=== PATIENT | male | born 1945 ===

== ENCOUNTER 2023-06-18 15:04 | Emergency (ER) | payer OTHER, MEDICAID ==
[~2023-06-18] VITALS: Ht 160 cm; Wt 70.3 kg
[2023-06-18 16:27] LABS: BASOPHILS # (AUTO) 0.4 K/UL (0.0-0.2); BASOPHILS % (AUTO) 3.5 % (0.0-2.0); EOSINOPHILS # (AUTO) 0.3 K/uL (0.0-0.7); HEMATOCRIT 38.9 % (36.7-47.1); HEMOGLOBIN 12.7 g/dL (12.5-16.3); LYMPHOCYTES # (AUTO) 1.7 K/uL (0.8-4.8); LYMPHOCYTES % (AUTO) 13.5 % (20.5-51.5); MEAN CORPUSCULAR HEMOGLOBIN 32.2 uug (23.8-33.4); MEAN CORPUSCULAR HGB CONC 33 g/dL (32.5-36.3); MEAN CORPUSCULAR VOLUME 98.7 fL (73.0-96.2); MONOCYTES # (AUTO) 0.9 K/uL (0.1-1.30); MONOCYTES % (AUTO) 6.8 % (0.0-11.0); NEUTROPHILS # (AUTO) 9.3 K/uL (1.8-8.9); NEUTROPHILS % (AUTO) 74.2 % (38.5-71.5); PLATELET COUNT (AUTO) 196 K/uL (152-348); RED BLOOD CELL COUNT(AUTO) 3.94 MIL/uL (4.06-5.63); RED CELL DISTRIBUTION WIDTH 13.8 % (12.1-16.2); WHITE BLOOD COUNT (AUTO) 12.6 K/uL (3.6-10.2)
[2023-06-18 16:34] LABS: CALCIUM 9.1 mg/dL (8.5-10.1); CARBON DIOXIDE 18 mmol/L (21-32); CHLORIDE 103 mmol/L (98-107); CREATININE 1.3 mg/dL (0.6-1.3); GLUCOSE 135 mg/dL (74-106); POTASSIUM 4.2 mmol/L (3.5-5.1); SODIUM SERUM 132 mmol/L (136-145); UREA NITROGEN, BLOOD 20 mg/dL (7-18)
[2023-06-18 16:37] LABS: AMMONIA 26 umol/L (11-32)
[2023-06-18 16:38] LABS: ETHANOL < 3 MG/DL (0-10)
[2023-06-18 16:39] LABS: DIFFERENTIAL COMMENT 1
[2023-06-18 16:43] LABS: ACETAMINOPHEN < 2.0 ug/mL (10-30); ALANINE AMINOTRANSFERASE 15 U/L (16-63); ALBUMIN 3.5 g/dL (3.4-5.0); ALKALINE PHOSPHATASE 62 U/L (50-136); ASPARTATE AMINOTRANSFERASE 12 U/L (15-37); BILIRUBIN,DIRECT 0.2 mg/dL (0.0-0.2); BILIRUBIN,TOTAL 0.4 mg/dL (0.2-1.0); TOTAL PROTEIN, SERUM 7.3 g/dL (6.4-8.2)
[2023-06-18] MEDS ORDERED: IV NORMAL SALINE 1000 ML BAG IV ONE (17:15)
[2023-06-18 17:28] LABS: THYROID STIMULATING HORMONE 1.266 mIU/mL (0.358-3.740)
[2023-06-18 19:25] VITALS: O2SAT 97
== END 2023-06-18 20:19 | disposition short-term general hospital (02) ==
LOC: ER 15:07
DX: R55 Syncope and collapse (principal); E86.0 Dehydration; E87.20 Acidosis, unspecified; Z20.822 Contact with and (suspected) exposure to COVID-19; Z88.0 Allergy status to penicillin; Z88.1 Allergy status to other antibiotic agents
CPT/HCPCS: 80076; 80048; 82140; 84443; 85025; 85730; 87426; 87040 ×2; 84484; 36415; 93005; 71045; 70450; 99285; 96360; 96361; 83605 ×2; 80299; 80320; J7040; A4606; A4663; G0480